=== PATIENT | male | born 1995 | race Caucasian/White ===

== ENCOUNTER 2019-07-20 09:49 | Outpatient (CLI) | payer OTHER ==
[~2019-07-20] VITALS: Ht 185.4 cm; Wt 76.1 kg
[2019-07-20] MEDS ORDERED: ZYRTEC 10MG10 MG PO (10:07)
[2019-07-20] MEDS ORDERED: NASACORT OTC NS (10:08)
[2019-07-20 10:09] VITALS: BP 140/97; PULSE 58; TEMP 97.8
[2019-07-20 11:51] VITALS: BP 126/87; PULSE 56
--- NOTE | 2019-07-20 11:52 | NUR ---
PT back from cath lab radiology technician, he is awake and alert, p,w,d. Plan is for Dr. Morales to come talk to pt prior to discharge. pt aware.
--- NOTE | 2019-07-20 12:15 | NUR ---
Pt ready for discharge, he has spoken to Dr. Morales. I reviewed pt's follow up and discharge information with pt who didn't have any questions at this time. IV dc'd cath intact, dressing applied. PT was escorted out to exit, he was ambulatory with steady gait.
== END 2019-07-20 12:30 | disposition home or self-care (01) ==
LOC: COL.CAR 09:49
DX: R55 Syncope and collapse (principal); Z87.891 Personal history of nicotine dependence; Z82.49 Family history of ischemic heart disease and other diseases of the circulatory system